=== PATIENT | male | born 1945 | race African-American/Black ===

== ENCOUNTER 2020-11-18 08:47 | Inpatient (IN) | payer MEDICARE, MEDICAID ==
[2020-11-18] VITALS (34 sets, daily range): BP systolic 122–179; BP diastolic 58–104
[~2020-11-18] VITALS: Ht 180.3 cm; Wt 94.3 kg
[2020-11-18] MEDS ORDERED: ALTEPLASE 100MG/VIAL IV NR ×2 (09:26→09:45)
[2020-11-18] MEDS ORDERED: ALTEPLASE IV NR ×2 (09:29→09:45)
[2020-11-18] MEDS ORDERED: IOHEXOL-350 100 ML BOTTLE ONE (09:41)
[2020-11-18] MEDS ORDERED: *NO ASPIRIN X 24 HOURS XX SCH (09:45)
[2020-11-18] MEDS ORDERED: CONTAINER EMPTY IV NR (09:45)
[2020-11-18 09:56] LABS: BASOPHILS % 0.6 % (0.0-2.0); EOSINOPHILS % 0.1 % (0.0-5.0); HEMATOCRIT. 41.5 % (42.0-52.0); HEMOGLOBIN. 14.1 g/dL (14.0-18.0); LYMPHOCYTES % 16.5 % (20.0-50.0); MEAN CORPUSCULAR HEMOGLOBIN 32.4 pg (28.0-32.0); MEAN CORPUSCULAR VOLUME 95.4 fL (80.0-94.0); MEAN PLATELET VOLUME 8.1 fl (7.4-10.4); MONOCYTES % 9.4 % (2.0-8.0); NEUTROPHILS % 73.4 % (40.0-76.0); PLATELET 170 x1000/uL (130-400); RED BLOOD CELL COUNT 4.35 mill/uL (4.7-6.1); RED CELL DISTRIBUTION WIDTH 12.9 % (11.6-14.6)
[2020-11-18 10:01] LABS: CHLORIDE 109 mEq/L (98-107)
[2020-11-18 10:04] LABS: ETHANOL BLOOD < 10 mg/dL
[2020-11-18 10:06] LABS: PROTHROMBIN TIME 10.9 sec (9.6-11.0)
[2020-11-18 10:08] LABS: LDL CHOLESTEROL 66 mg/dL (5-100)
[2020-11-18 11:39] LABS: CLARITY URINE CLEAR (CLEAR); COLOR URINE YELLOW (YELLOW); KETONES URINE NEGATIVE (NEGATIVE); LEUKOCYTE ESTERASE URINE NEGATIVE (NEGATIVE); NITRITE URINE NEGATIVE (NEGATIVE); OCCULT BLOOD URINE NEGATIVE (NEGATIVE); PH URINE 7.5 (4.5-8.0); PROTEIN URINE NEGATIVE (NEGATIVE); SPECIFIC GRAVITY URINE 1.055 (1.005-1.030); UROBILINOGEN URINE 0.2 E.U./dL (0.2-1.0)
[2020-11-18 11:59] LABS: *AMPHETAMINES SCREEN URINE NEGATIVE (NEGATIVE); *BARBITURATES SCREEN URINE NEGATIVE (NEGATIVE); *BENZODIAZEPINES SCREEN URINE NEGATIVE (NEGATIVE)
[2020-11-18 12:00] LABS: *COCAINE SCREEN URINE NEGATIVE (NEGATIVE); CANNABINOID URINE SCREEN NEGATIVE (NEGATIVE); METHADONE URINE SCREEN NEGATIVE (NEGATIVE); OPIATES URINE SCREEN NEGATIVE (NEGATIVE); PHENCYCLIDINE URINE SCREEN NEGATIVE (NEGATIVE)
[2020-11-18] MEDS ORDERED: CLONIDINE 0.1MG TABLET PO PRN (15:15)
[2020-11-18] MEDS ORDERED: LORAZEPAM 0.5MG TABLET PO PRN (15:15)
[2020-11-18] MEDS ORDERED: HYDROCODONE/ACETAMINOPHEN 5/325MG TABLET PO PRN (15:15)
[2020-11-18] MEDS ORDERED: ACETAMINOPHEN 325MG TABLET PO PRN ×2 (15:15)
[2020-11-18] MEDS ORDERED: ONDANSETRON HCL 4MG/2ML INJ IV PRN (15:15)
[2020-11-18] MEDS ORDERED: LABETALOL 5MG/ML SYR 20 MG/4 ML SYRINGE IV PRN (15:15)
[2020-11-18] MEDS ORDERED: IPRATROPIUM/ALBUTEROL 0.5-3(2.5)MG/3ML NEB HHN PRN (15:15)
[2020-11-18] MEDS ORDERED: NALOXONE HCL 0.4MG/ML VIAL IV PRN (15:30)
[2020-11-18] MEDS: DOCUSATE SODIUM 100MG CAPSULE PO PRN (19:18)
[2020-11-19] VITALS (72 sets, daily range): BP systolic 109–181; BP diastolic 50–105
[2020-11-19 05:30] LABS: BASOPHILS % 0.5 % (0.0-2.0); EOSINOPHILS % 0.8 % (0.0-5.0); HEMATOCRIT. 38.1 % (42.0-52.0); HEMOGLOBIN. 12.9 g/dL (14.0-18.0); LYMPHOCYTES % 21.9 % (20.0-50.0); MEAN CORPUSCULAR HEMOGLOBIN 31.8 pg (28.0-32.0); MEAN CORPUSCULAR VOLUME 93.6 fL (80.0-94.0); MEAN PLATELET VOLUME 8.5 fl (7.4-10.4); MONOCYTES % 10.8 % (2.0-8.0); PLATELET 178 x1000/uL (130-400); RED BLOOD CELL COUNT 4.07 mill/uL (4.7-6.1)
[2020-11-19 05:34] LABS: CHLORIDE 106 mEq/L (98-107)
[2020-11-19] MEDS ORDERED: FINA5TAB11 PO (07:38)
[2020-11-19] MEDS ORDERED: TAMSULOSIN PO (07:38)
[2020-11-19] MEDS ORDERED: AZIL1TAB3 PO (07:38)
[2020-11-19] MEDS ORDERED: TADA5TAB PO (07:38)
[2020-11-19] MEDS ORDERED: ATOR10TA69 PO (07:38)
[2020-11-20] VITALS (43 sets, daily range): BP systolic 91–161; BP diastolic 48–89
[2020-11-20 04:41] LABS: BASOPHILS % 0.6 % (0.0-2.0); EOSINOPHILS % 1.7 % (0.0-5.0); HEMATOCRIT. 38.4 % (42.0-52.0); HEMOGLOBIN. 13.4 g/dL (14.0-18.0); LYMPHOCYTES % 29.1 % (20.0-50.0); MEAN CORPUSCULAR HEMOGLOBIN 32.3 pg (28.0-32.0); MEAN CORPUSCULAR VOLUME 92.3 fL (80.0-94.0); MEAN PLATELET VOLUME 7.7 fl (7.4-10.4); NEUTROPHILS % 57.6 % (40.0-76.0); PLATELET 178 x1000/uL (130-400); RED BLOOD CELL COUNT 4.16 mill/uL (4.7-6.1); RED CELL DISTRIBUTION WIDTH 12.7 % (11.6-14.6)
[2020-11-20 04:43] LABS: CHLORIDE 107 mEq/L (98-107)
[2020-11-20] MEDS: DOCUSATE SODIUM 100MG CAPSULE PO PRN (11:28)
[2020-11-20] MEDS: TAMSULOSIN HCL 0.4MG SR CAPSULE PO SCH (11:28)
[2020-11-20] MEDS: FINASTERIDE 5MG TABLET PO SCH (11:29)
[2020-11-20] MEDS: ATORVASTATIN CALCIUM 10MG TABLET PO SCH (22:07)
[2020-11-21] VITALS (21 sets, daily range): BP systolic 98–141; BP diastolic 40–86
[2020-11-21 07:14] LABS: BASOPHILS % 0.6 % (0.0-2.0); HEMATOCRIT. 40.5 % (42.0-52.0); HEMOGLOBIN. 14.1 g/dL (14.0-18.0); LYMPHOCYTES % 24.2 % (20.0-50.0); MEAN CORPUSCULAR HEMOGLOBIN 32.4 pg (28.0-32.0); MEAN CORPUSCULAR VOLUME 93.1 fL (80.0-94.0); MEAN PLATELET VOLUME 7.9 fl (7.4-10.4); MONOCYTES % 9.1 % (2.0-8.0); NEUTROPHILS % 64.1 % (40.0-76.0); PLATELET 203 x1000/uL (130-400); RED BLOOD CELL COUNT 4.35 mill/uL (4.7-6.1); RED CELL DISTRIBUTION WIDTH 12.8 % (11.6-14.6)
[2020-11-21 07:37] LABS: CHLORIDE 107 mEq/L (98-107)
[2020-11-21] MEDS: TAMSULOSIN HCL 0.4MG SR CAPSULE PO SCH (09:08)
[2020-11-21] MEDS: FINASTERIDE 5MG TABLET PO SCH (09:09)
[2020-11-21] MEDS ORDERED: BISACODYL 10MG SUPP PR PRN (18:45)
[2020-11-21] MEDS: ATORVASTATIN CALCIUM 10MG TABLET PO SCH (20:33)
[2020-11-21] MEDS: LACTULOSE 20G/30ML UDC PO PRN (20:33)
[2020-11-22] VITALS (16 sets, daily range): BP systolic 104–154; BP diastolic 57–82
[2020-11-22 07:39] LABS: BASOPHILS % 0.7 % (0.0-2.0); EOSINOPHILS % 2.4 % (0.0-5.0); HEMATOCRIT. 41.7 % (42.0-52.0); HEMOGLOBIN. 14.4 g/dL (14.0-18.0); LYMPHOCYTES % 30.5 % (20.0-50.0); MEAN CORPUSCULAR HEMOGLOBIN 31.9 pg (28.0-32.0); MEAN CORPUSCULAR VOLUME 92.5 fL (80.0-94.0); MEAN PLATELET VOLUME 8.1 fl (7.4-10.4); MONOCYTES % 9.8 % (2.0-8.0); NEUTROPHILS % 56.6 % (40.0-76.0); PLATELET 201 x1000/uL (130-400); RED BLOOD CELL COUNT 4.51 mill/uL (4.7-6.1); RED CELL DISTRIBUTION WIDTH 12.7 % (11.6-14.6)
[2020-11-22] MEDS: DOCUSATE SODIUM 250MG CAPSULE PO PRN (08:17)
[2020-11-22] MEDS: FINASTERIDE 5MG TABLET PO SCH (08:18)
[2020-11-22] MEDS: TAMSULOSIN HCL 0.4MG SR CAPSULE PO SCH (08:18)
[2020-11-22 09:14] LABS: CHLORIDE 107 mEq/L (98-107)
[2020-11-22] MEDS: CLOPIDOGREL 75MG TABLET PO SCH (14:49)
[2020-11-22] MEDS: ASPIRIN 81MG TABLET PO SCH (14:50)
[2020-11-22] MEDS: LACTULOSE 20G/30ML UDC PO PRN (21:14)
[2020-11-22] MEDS: ATORVASTATIN CALCIUM 10MG TABLET PO SCH (21:14)
[2020-11-23] VITALS (15 sets, daily range): BP systolic 97–153; BP diastolic 37–82
[2020-11-23 07:25] LABS: BASOPHILS % 0.7 % (0.0-2.0); EOSINOPHILS % 2.6 % (0.0-5.0); HEMATOCRIT. 40.6 % (42.0-52.0); HEMOGLOBIN. 14.1 g/dL (14.0-18.0); LYMPHOCYTES % 26.7 % (20.0-50.0); MEAN CORPUSCULAR HEMOGLOBIN 32.1 pg (28.0-32.0); MEAN CORPUSCULAR VOLUME 92.7 fL (80.0-94.0); MEAN PLATELET VOLUME 8.3 fl (7.4-10.4); MONOCYTES % 10.8 % (2.0-8.0); NEUTROPHILS % 59.2 % (40.0-76.0); PLATELET 189 x1000/uL (130-400); RED BLOOD CELL COUNT 4.39 mill/uL (4.7-6.1); RED CELL DISTRIBUTION WIDTH 12.6 % (11.6-14.6)
[2020-11-23 07:31] LABS: CHLORIDE 107 mEq/L (98-107)
[2020-11-23] MEDS ORDERED: MAGNESIUM HYDROXIDE 400MG/5ML 30ML UDC PO PRN (08:45)
[2020-11-23] MEDS: ASPIRIN 81MG TABLET PO SCH (08:55)
[2020-11-23] MEDS: DOCUSATE SODIUM 250MG CAPSULE PO PRN (08:55)
[2020-11-23] MEDS: FINASTERIDE 5MG TABLET PO SCH (08:55)
[2020-11-23] MEDS: CLOPIDOGREL 75MG TABLET PO SCH (08:55)
[2020-11-23] MEDS: TAMSULOSIN HCL 0.4MG SR CAPSULE PO SCH (08:55)
[2020-11-23] MEDS ORDERED: POLYETHYLENE GLYCOL 3350 (17GM) 1 DOSE PACK PO SCH (09:00)
== END 2020-11-23 18:35 | DRG 65 ==
LOC: ER 08:47 → MICUSO 10:57 → EDBEDREQSVC 11:19 → EDBEDREQ 11:19 → ENRESERV 15:18 → 3WST 11-20 21:06
PROVIDERS: ADMIT Internal Medicine; ATTEND Internal Medicine
DX: I60.9 Nontraumatic subarachnoid hemorrhage, unspecified (principal); G81.91 Hemiplegia, unspecified affecting right dominant side; I10 Essential (primary) hypertension; R29.810 Facial weakness; I67.2 Cerebral atherosclerosis; D72.821 Monocytosis (symptomatic); Z86.73 Personal history of transient ischemic attack (TIA), and cerebral infarction without residual deficits
CPT/HCPCS: 36415; 70496; 70551; 71045; 80048; 80053; 80061; 80305; 80320; 81003; 82962; 83036; 83721; 84443; 84484; 85025; 92610; 93005; 93306; 95816; 97116; 97162; 97530; 99291; A6261; J2997; J3490; J7060; Q9967; G0480

== ENCOUNTER 2020-11-23 19:46 | Inpatient (IN) | payer MEDICARE, MEDICAID ==
[~2020-11-23] VITALS: Ht 180.3 cm; Wt 94.3 kg
[2020-11-23 18:55] VITALS: BP 135/75
[~2020-11-23 19:46] MED LIST: ATOR10TA69 PO; AZIL1TAB3 PO; FINA5TAB11 PO; TADA5TAB PO; TAMSULOSIN PO
[2020-11-23 20:00] VITALS: BP 131/77
[2020-11-23] MEDS ORDERED: IPRATROPIUM/ALBUTEROL 0.5-3(2.5)MG/3ML NEB HHN PRN (20:45)
[2020-11-23] MEDS ORDERED: LACTULOSE 20G/30ML UDC PO PRN (21:00)
[2020-11-23] MEDS ORDERED: BISACODYL 10MG SUPP PR PRN (21:00)
[2020-11-23] MEDS ORDERED: LABETALOL 5MG/ML SYR 20 MG/4 ML SYRINGE IV PRN (21:00)
[2020-11-23] MEDS ORDERED: MAGNESIUM HYDROXIDE 400MG/5ML 30ML UDC PO PRN (21:00)
[2020-11-23] MEDS ORDERED: ACETAMINOPHEN 325MG TABLET PO PRN ×2 (21:00)
[2020-11-23] MEDS ORDERED: CLONIDINE 0.1MG TABLET PO PRN (21:00)
[2020-11-23] MEDS ORDERED: NALOXONE HCL 0.4 MG/ML 1ML VIAL IV PRN (21:00)
[2020-11-23] MEDS ORDERED: ONDANSETRON HCL 4MG TABLET PO PRN (21:00)
[2020-11-23] MEDS ORDERED: DOCUSATE SODIUM 250MG CAPSULE PO PRN (21:00)
[2020-11-23] MEDS: DOCUSATE SODIUM 100MG CAPSULE PO PRN (21:59)
[2020-11-23] MEDS: ATORVASTATIN CALCIUM 10MG TABLET PO SCH (21:59)
[2020-11-24 08:00] VITALS: BP 126/73
[2020-11-24] MEDS: ASPIRIN 81MG TABLET PO SCH (08:26)
[2020-11-24] MEDS: CLOPIDOGREL 75MG TABLET PO SCH (08:27)
[2020-11-24] MEDS: TAMSULOSIN HCL 0.4MG SR CAPSULE PO SCH (08:27)
[2020-11-24] MEDS: FINASTERIDE 5MG TABLET PO SCH (08:27)
[2020-11-24] MEDS: POLYETHYLENE GLYCOL 3350 (17GM) 1 DOSE PACK PO SCH (08:28)
[2020-11-24 20:00] VITALS: BP 133/77
[2020-11-24] MEDS: ATORVASTATIN CALCIUM 10MG TABLET PO SCH (20:24)
[2020-11-25 07:52] VITALS: BP 139/71
[2020-11-25] MEDS: POLYETHYLENE GLYCOL 3350 (17GM) 1 DOSE PACK PO SCH (09:00)
[2020-11-25] MEDS: ASPIRIN 81MG TABLET PO SCH (10:43)
[2020-11-25] MEDS: TAMSULOSIN HCL 0.4MG SR CAPSULE PO SCH (10:44)
[2020-11-25] MEDS: FINASTERIDE 5MG TABLET PO SCH (10:45)
[2020-11-25] MEDS: CLOPIDOGREL 75MG TABLET PO SCH (10:45)
[2020-11-25] MEDS: DOCUSATE SODIUM 100MG CAPSULE PO PRN (10:45)
[2020-11-25 20:00] VITALS: BP 138/69
[2020-11-25] MEDS: ATORVASTATIN CALCIUM 10MG TABLET PO SCH (20:18)
[2020-11-26 08:20] VITALS: BP 134/71
[2020-11-26] MEDS: POLYETHYLENE GLYCOL 3350 (17GM) 1 DOSE PACK PO SCH (09:00)
[2020-11-26] MEDS: TAMSULOSIN HCL 0.4MG SR CAPSULE PO SCH (09:24)
[2020-11-26] MEDS: ASPIRIN 81MG TABLET PO SCH (09:24)
[2020-11-26] MEDS: CLOPIDOGREL 75MG TABLET PO SCH (09:24)
[2020-11-26] MEDS: FINASTERIDE 5MG TABLET PO SCH (09:24)
[2020-11-26 20:00] VITALS: BP 126/72
[2020-11-26] MEDS: ATORVASTATIN CALCIUM 10MG TABLET PO SCH (20:38)
[2020-11-27 08:00] VITALS: BP 122/67
[2020-11-27] MEDS: TAMSULOSIN HCL 0.4MG SR CAPSULE PO SCH (08:27)
[2020-11-27] MEDS: FINASTERIDE 5MG TABLET PO SCH (08:27)
[2020-11-27] MEDS: POLYETHYLENE GLYCOL 3350 (17GM) 1 DOSE PACK PO SCH (08:27)
[2020-11-27] MEDS: ASPIRIN 81MG TABLET PO SCH (08:27)
[2020-11-27] MEDS: CLOPIDOGREL 75MG TABLET PO SCH (08:27)
[2020-11-27 20:00] VITALS: BP 132/76
[2020-11-27] MEDS: ATORVASTATIN CALCIUM 10MG TABLET PO SCH (21:05)
[2020-11-28 07:45] VITALS: BP 133/80
[2020-11-28] MEDS ORDERED: FINA5TAB11 PO (09:13)
[2020-11-28] MEDS ORDERED: CLOP75TA15 PO (09:13)
[2020-11-28] MEDS ORDERED: ASPI-1160 PO (09:13)
[2020-11-28] MEDS ORDERED: ATOR10TA PO (09:13)
[2020-11-28] MEDS ORDERED: TAMS-11 PO (09:13)
[2020-11-28] MEDS: POLYETHYLENE GLYCOL 3350 (17GM) 1 DOSE PACK PO SCH (09:24)
[2020-11-28] MEDS: FINASTERIDE 5MG TABLET PO SCH (09:25)
[2020-11-28] MEDS: TAMSULOSIN HCL 0.4MG SR CAPSULE PO SCH (09:25)
[2020-11-28] MEDS: CLOPIDOGREL 75MG TABLET PO SCH (09:25)
[2020-11-28] MEDS: ASPIRIN 81MG TABLET PO SCH (09:25)
[2020-11-28 14:19] VITALS: BP 133/80
== END 2020-11-28 18:23 | disposition home or self-care (01) | DRG 56 ==
PROVIDERS: ADMIT Psychiatry & Neurology Neurology; ATTEND Internal Medicine
PROC: 4A10X4Z Monitoring of Central Nervous Electrical Activity, External Approach (ICD-10-PCS; principal; 2020-11-24)
DX: I69.351 Hemiplegia and hemiparesis following cerebral infarction affecting right dominant side (principal); I60.9 Nontraumatic subarachnoid hemorrhage, unspecified; I10 Essential (primary) hypertension; I67.2 Cerebral atherosclerosis; Z79.899 Other long term (current) drug therapy; Z79.82 Long term (current) use of aspirin; R29.810 Facial weakness; D72.821 Monocytosis (symptomatic)
CPT/HCPCS: 92523; 92610; 93880; 93970; 97110; 97112; 97116; 97150; 97162; 97166; 97530; 97535

== ENCOUNTER 2024-10-23 13:15 | Emergency (ER) | payer MEDICARE, MEDICAID ==
[~2024-10-23] VITALS: Ht 180.3 cm; Wt 93.0 kg
[~2024-10-23 13:15] MED LIST changes: +ASPI-1160 PO; +ATOR10TA PO; -ATOR10TA69 PO; -AZIL1TAB3 PO; +CLOP75TA15 PO; +TAMS-54 PO; -TAMSULOSIN PO
[2024-10-23 13:18] VITALS: O2SAT 98
[2024-10-23 15:50] LABS: COLOR URINE YELLOW (YELLOW); GLUCOSE URINE NEGATIVE (NEGATIVE); KETONES URINE TRACE (NEGATIVE); LEUKOCYTE ESTERASE URINE 2+ (NEGATIVE); NITRITE URINE NEGATIVE (NEGATIVE); OCCULT BLOOD URINE NEGATIVE (NEGATIVE); PH URINE 5.5 (4.5-8.0); PROTEIN URINE NEGATIVE (NEGATIVE); SPECIFIC GRAVITY URINE 1.023 (1.005-1.030); UROBILINOGEN URINE 1.0 E.U./dL (0.2-1.0)
[2024-10-23 16:15] LABS: BASOPHILS % 0.4 % (0.0-2.0); EOSINOPHILS % 1.5 % (0.0-5.0); HEMATOCRIT. 43.1 % (42.0-52.0); HEMOGLOBIN. 14.0 g/dL (14.0-18.0); LYMPHOCYTES % 39.6 % (20.0-50.0); MEAN PLATELET VOLUME 8.0 fl (7.4-10.4); MONOCYTES % 7.7 % (2.0-8.0); NEUTROPHILS % 50.8 % (40.0-76.0); PLATELET 159 x1000/uL (130-400); RED BLOOD CELL COUNT 4.55 mill/uL (4.7-6.1); RED CELL DISTRIBUTION WIDTH 13.7 % (11.6-14.6)
[2024-10-23 16:24] LABS: CREATININE 1.1 mg/dL (0.6-1.3)
[2024-10-23 16:25] LABS: TROPONIN I HIGH SENSITIVITY < 4 ng/L (3.0-53); UREA NITROGEN BLOOD 11 mg/dL (9-23)
[2024-10-23 16:26] LABS: ASPARTATE AMINOTRANSFERASE 17 IU/L (<34)
[2024-10-23 16:27] LABS: BILIRUBIN DIRECT 0.2 mg/dL (<=3.0); BILIRUBIN TOTAL 0.6 mg/dL (0.1-1.0); PROTEIN TOTAL 7.7 g/dL (6.0-8.3)
[2024-10-23 16:31] LABS: CLARITY URINE SL HAZY (CLEAR)
[2024-10-23 16:32] LABS: BACTERIA URINE TRACE; RBC URINE NONE SEEN /hpf (0-2); RENAL EPITHELIAL CELLS URINE 1+ /lpf; SQUAMOUS EPITHELIAL CELL URINE FEW /lpf (RARE/1+)
[2024-10-23] MEDS ORDERED: CEFP200T13 MT (17:08)
[2024-10-23 17:52] VITALS: BP 150/69; PULSE 78; RESP 19; TEMP 36.9; O2SAT 98
== END 2024-10-23 17:53 | disposition home or self-care (01) ==
LOC: ER 13:15
DX: N39.0 Urinary tract infection, site not specified (principal); I10 Essential (primary) hypertension; Z79.82 Long term (current) use of aspirin; Z98.890 Other specified postprocedural states; Z79.899 Other long term (current) drug therapy; Z86.73 Personal history of transient ischemic attack (TIA), and cerebral infarction without residual deficits
CPT/HCPCS: 36415; 71045; 74176; 80048; 80076; 81003; 84484; 85025; 99284

== ENCOUNTER 2024-11-28 10:15 | Emergency (ER) | payer MEDICARE, MEDICAID ==
[~2024-11-28] VITALS: Ht 180.3 cm; Wt 91.0 kg
[~2024-11-28 10:15] MED LIST changes: +CEFP200T13 MT
[2024-11-28 10:20] VITALS: O2SAT 100
[2024-11-28 10:59] LABS: CLARITY URINE CLEAR (CLEAR); COLOR URINE YELLOW (YELLOW); GLUCOSE URINE NEGATIVE (NEGATIVE); KETONES URINE TRACE (NEGATIVE); LEUKOCYTE ESTERASE URINE 2+ (NEGATIVE); NITRITE URINE NEGATIVE (NEGATIVE); OCCULT BLOOD URINE NEGATIVE (NEGATIVE); PH URINE 5.5 (4.5-8.0); PROTEIN URINE NEGATIVE (NEGATIVE); SPECIFIC GRAVITY URINE 1.021 (1.005-1.030); UROBILINOGEN URINE 0.2 E.U./dL (0.2-1.0)
[2024-11-28] MEDS: ACETAMINOPHEN 500MG TABLET PO SCH (11:08)
[2024-11-28 11:09] LABS: BASOPHILS % 0.9 % (0.0-2.0); EOSINOPHILS % 0.6 % (0.0-5.0); HEMATOCRIT. 41.0 % (42.0-52.0); HEMOGLOBIN. 13.8 g/dL (14.0-18.0); LYMPHOCYTES % 36.3 % (20.0-50.0); MEAN PLATELET VOLUME 7.7 fl (7.4-10.4); MONOCYTES % 10.7 % (2.0-8.0); NEUTROPHILS % 51.5 % (40.0-76.0); PLATELET 164 x1000/uL (130-400); RED BLOOD CELL COUNT 4.41 mill/uL (4.7-6.1); RED CELL DISTRIBUTION WIDTH 13.1 % (11.6-14.6)
[2024-11-28 11:21] LABS: CREATININE 1.2 mg/dL (0.6-1.3); UREA NITROGEN BLOOD 13 mg/dL (9-23)
[2024-11-28 11:23] LABS: ASPARTATE AMINOTRANSFERASE 16 IU/L (<34); BILIRUBIN TOTAL 0.6 mg/dL (0.1-1.0); PROTEIN TOTAL 7.6 g/dL (6.0-8.3)
[2024-11-28 12:07] LABS: SQUAMOUS EPITHELIAL CELL URINE 2+ /lpf (RARE/1+); WBC URINE 15-25 /hpf (0-2)
[2024-11-28 12:09] LABS: RBC URINE 0-2 /hpf (0-2)
[2024-11-28 12:10] LABS: BACTERIA URINE TRACE; TRICHOMONAS URINE RARE
[2024-11-28] MEDS ORDERED: CIPR500S3 PO (12:41)
[2024-11-28] MEDS: ONDANSETRON 4MG ODT PO ONE (12:45)
[2024-11-28] MEDS: METRONIDAZOLE 500MG TABLET PO ONE (12:45)
[2024-11-28 12:50] VITALS: BP 144/76; PULSE 70; RESP 18; TEMP 36.7; O2SAT 100
== END 2024-11-28 12:50 | disposition home or self-care (01) ==
LOC: ER 10:15
DX: N39.0 Urinary tract infection, site not specified (principal); A59.9 Trichomoniasis, unspecified; I10 Essential (primary) hypertension; M54.50 Low back pain, unspecified; Z79.02 Long term (current) use of antithrombotics/antiplatelets; Z79.82 Long term (current) use of aspirin; Z79.899 Other long term (current) drug therapy; Z86.73 Personal history of transient ischemic attack (TIA), and cerebral infarction without residual deficits
CPT/HCPCS: 99284; 80053; 81003; 85025; 87086; 36415; 73502; Q0162